=== PATIENT | female | born 1990 | race Caucasian/White ===

== ENCOUNTER 2018-01-29 03:20 | Emergency (ER) | payer MEDICAID ==
[~2018-01-29] VITALS: Ht 160 cm; Wt 73.0 kg
[~2018-01-29 03:20] MED LIST: FERR325T23 PO; IBUP-779 PO; MULT-1146 PO
[2018-01-29] MEDS ORDERED: ONDANSETRON HCL 4MG/2ML INJ IV STA (04:02)
[2018-01-29] MEDS ORDERED: SODIUM CHLORIDE 0.9% 1,000 ML IV ONE (04:02)
[2018-01-29 04:28] LABS: BASOPHILS % 0.6 % (0.0-2.0); EOSINOPHILS % 0.9 % (0.0-5.0); HEMATOCRIT. 41.6 % (36.0-48.0); HEMOGLOBIN. 14.1 g/dL (12.0-16.0); LYMPHOCYTES % 17.8 % (20.0-50.0); MEAN CORPUSCULAR HEMOGLOBIN 30.8 pg (28.0-32.0); MEAN CORPUSCULAR VOLUME 90.9 fL (81.0-99.0); MEAN PLATELET VOLUME 8.3 fl (7.4-10.4); MONOCYTES % 5.5 % (2.0-8.0); NEUTROPHILS % 75.2 % (40.0-76.0); PLATELET 385 x1000/uL (130-400); RED BLOOD CELL COUNT 4.57 mill/uL (4.2-5.4)
[2018-01-29 04:32] LABS: CHLORIDE 101 mEq/L (98-107)
[2018-01-29 04:36] LABS: ETHANOL BLOOD < 10 mg/dL
[2018-01-29 06:52] LABS: CLARITY URINE CLEAR (CLEAR); COLOR URINE YELLOW (YELLOW); KETONES URINE NEGATIVE (NEGATIVE); LEUKOCYTE ESTERASE URINE NEGATIVE (NEGATIVE); NITRITE URINE NEGATIVE (NEGATIVE); OCCULT BLOOD URINE NEGATIVE (NEGATIVE); PH URINE 5.5 (4.5-8.0); PROTEIN URINE NEGATIVE (NEGATIVE); SPECIFIC GRAVITY URINE 1.011 (1.005-1.030); UROBILINOGEN URINE 0.2 E.U./dL (0.2-1.0)
[2018-01-29 07:09] LABS: *AMPHETAMINES SCREEN URINE NEGATIVE (NEGATIVE); *BARBITURATES SCREEN URINE NEGATIVE (NEGATIVE); *BENZODIAZEPINES SCREEN URINE NEGATIVE (NEGATIVE); *COCAINE SCREEN URINE NEGATIVE (NEGATIVE); METHADONE URINE SCREEN NEGATIVE (NEGATIVE); OPIATES URINE SCREEN NEGATIVE (NEGATIVE)
[2018-01-29 07:11] LABS: CANNABINOID URINE SCREEN NEGATIVE (NEGATIVE); PHENCYCLIDINE URINE SCREEN NEGATIVE (NEGATIVE)
[2018-01-29 08:35] VITALS: BP 107/69
== END 2018-01-29 08:40 | disposition home or self-care (01) ==
LOC: ER 03:20
DX: F41.9 Anxiety disorder, unspecified (principal); R11.10 Vomiting, unspecified; R19.7 Diarrhea, unspecified; R53.1 Weakness; F17.200 Nicotine dependence, unspecified, uncomplicated; Z90.49 Acquired absence of other specified parts of digestive tract; Z79.899 Other long term (current) drug therapy
CPT/HCPCS: 36415; 71045; 80048; 80305; 81003; 81025; 85025; 96361; 96374; 99284; G0482; J2405; J7030

== ENCOUNTER 2018-08-07 02:33 | Emergency (ER) | payer MEDICAID ==
[~2018-08-07] VITALS: Ht 165.1 cm; Wt 73.0 kg
[2018-08-07] MEDS ORDERED: ONDANSETRON HCL 4MG/2ML INJ IV STA (02:54)
[2018-08-07] MEDS ORDERED: SODIUM CHLORIDE 0.9% 1,000 ML IV ONE (02:54)
[2018-08-07] MEDS ORDERED: MORPHINE SULFATE 4 MG/ML CPJ (NOT FOR IM USE) IV STA (02:54)
[2018-08-07] MEDS ORDERED: TETANUS, DIPHTHERIA, PERTUSSIS VAC/PF 0.5ML (>7YR OLD) IM ONE (03:00)
[2018-08-07] MEDS ORDERED: CEFAZOLIN 1000MG PREMIX 50 ML IV ONE (03:00)
[2018-08-07] MEDS ORDERED: BACITRACIN 15GM TUBE TOP ONE (03:15)
[2018-08-07] MEDS ORDERED: IOHEXOL-300 100 ML BOTTLE ONE (04:28)
[2018-08-07 04:50] LABS: CHLORIDE 113 mEq/L (98-107)
[2018-08-07 04:56] LABS: HCG SCREEN NEGATIVE
[2018-08-07 05:05] LABS: HEMATOCRIT. 36.9 % (36.0-48.0); HEMOGLOBIN. 12.2 g/dL (12.0-16.0); MEAN CORPUSCULAR HEMOGLOBIN 29.2 pg (28.0-32.0); MEAN CORPUSCULAR VOLUME 88.3 fL (81.0-99.0); MEAN PLATELET VOLUME 8.2 fl (7.4-10.4); PLATELET 390 x1000/uL (130-400); RED BLOOD CELL COUNT 4.18 mill/uL (4.2-5.4); RED CELL DISTRIBUTION WIDTH 13.6 % (11.6-14.6)
[2018-08-07 05:11] LABS: INR 0.9; PARTIAL THROMBOPLASTIN TIME 25.9 sec (23.4-31.0); PROTHROMBIN TIME 9.6 sec (9.6-11.0)
[2018-08-07 05:43] LABS: PLATELET ESTIMATE NORMAL
[2018-08-07 06:50] LABS: CLARITY URINE CLEAR (CLEAR); COLOR URINE YELLOW (YELLOW); KETONES URINE NEGATIVE (NEGATIVE); LEUKOCYTE ESTERASE URINE NEGATIVE (NEGATIVE); NITRITE URINE NEGATIVE (NEGATIVE); OCCULT BLOOD URINE TRACE (NEGATIVE); PROTEIN URINE TRACE (NEGATIVE); UROBILINOGEN URINE 0.2 E.U./dL (0.2-1.0)
[2018-08-07 06:56] VITALS: BP 119/61
== END 2018-08-07 07:02 | disposition short-term general hospital (02) ==
LOC: ER 03:01
DX: S27.0XXA Traumatic pneumothorax, initial encounter (principal); S22.42XA Multiple fractures of ribs, left side, initial encounter for closed fracture; S02.2XXA Fracture of nasal bones, initial encounter for closed fracture; S02.5XXA Fracture of tooth (traumatic), initial encounter for closed fracture; S00.83XA Contusion of other part of head, initial encounter; S00.11XA Contusion of right eyelid and periocular area, initial encounter; S80.212A Abrasion, left knee, initial encounter; S80.211A Abrasion, right knee, initial encounter; S50.811A Abrasion of right forearm, initial encounter; S59.812A Other specified injuries left forearm, initial encounter; S20.419A Abrasion of unspecified back wall of thorax, initial encounter; S20.111A Abrasion of breast, right breast, initial encounter; S30.811A Abrasion of abdominal wall, initial encounter; V03.10XA Pedestrian on foot injured in collision with car, pick-up truck or van in traffic accident, initial encounter; Y93.89 Activity, other specified; Y92.410 Unspecified street and highway as the place of occurrence of the external cause; F17.210 Nicotine dependence, cigarettes, uncomplicated
CPT/HCPCS: 36415; 70450; 70486; 71045; 71260; 72125; 72170; 73090; 74177; 80053; 81003; 83690; 84703; 85025; 85610; 85730; 86850; 86900; 86901; 90471; 90715; 96365; 96375; 99285; J0690; J2270; J2405; J7030; Q9967; Z7610

== ENCOUNTER 2019-11-23 05:25 | Emergency (ER) | payer MEDICAID ==
[~2019-11-23] VITALS: Ht 165.1 cm; Wt 73.0 kg
[2019-11-23 07:13] VITALS: BP 111/69
== END 2019-11-23 07:14 | disposition home or self-care (01) ==
LOC: ER 05:25
DX: F41.0 Panic disorder [episodic paroxysmal anxiety] (principal); Z63.79 Other stressful life events affecting family and household; F17.210 Nicotine dependence, cigarettes, uncomplicated
CPT/HCPCS: 81025; 93005; 99283

== ENCOUNTER 2020-11-20 15:50 | Emergency (ER) | payer MEDICAID ==
[~2020-11-20] VITALS: Ht 154.9 cm; Wt 85.0 kg
[2020-11-20 17:10] VITALS: BP 109/57
[2020-11-20] MEDS ORDERED: TOPUD MT (17:42)
[2020-11-20] MEDS ORDERED: LORA-68 MT (17:42)
== END 2020-11-20 18:28 | disposition home or self-care (01) ==
LOC: ER 15:50
DX: J06.9 Acute upper respiratory infection, unspecified (principal); Z20.822 Contact with and (suspected) exposure to COVID-19
CPT/HCPCS: 99283; C9803; U0003; U0005

== ENCOUNTER 2020-12-25 20:27 | Emergency (ER) | payer MEDICAID ==
[~2020-12-25] VITALS: Ht 167.6 cm; Wt 75.0 kg
[~2020-12-25 20:27] MED LIST changes: +LORA-68 MT; +TOPUD MT
[2020-12-25] MEDS ORDERED: MORPHINE SULFATE 4 MG/ML CPJ (NOT FOR IM USE) IV ONE (21:00)
[2020-12-25] MEDS ORDERED: SODIUM CHLORIDE 0.9% 1,000 ML IV ONE (21:00)
[2020-12-25 21:23] LABS: BASOPHILS % 0.3 % (0.0-2.0); EOSINOPHILS % 0.2 % (0.0-5.0); HEMATOCRIT. 31.8 % (36.0-48.0); HEMOGLOBIN. 10.9 g/dL (12.0-16.0); LYMPHOCYTES % 9.5 % (20.0-50.0); MEAN CORPUSCULAR HEMOGLOBIN 30.1 pg (28.0-32.0); MEAN CORPUSCULAR VOLUME 87.9 fL (81.0-99.0); MEAN PLATELET VOLUME 7.9 fl (7.4-10.4); MONOCYTES % 3.1 % (2.0-8.0); NEUTROPHILS % 86.9 % (40.0-76.0); PLATELET 350 x1000/uL (130-400); RED BLOOD CELL COUNT 3.62 mill/uL (4.2-5.4); RED CELL DISTRIBUTION WIDTH 13.2 % (11.6-14.6)
[2020-12-25 21:29] LABS: CHLORIDE 105 mEq/L (98-107)
[2020-12-25 21:53] LABS: B-HCG QUANTITATIVE 25378 mIU/mL (<3)
[2020-12-25] MEDS ORDERED: IBUP-2028 MT (23:08)
[2020-12-25] MEDS ORDERED: HYDR-4001 MT (23:08)
[2020-12-26 02:41] VITALS: BP 124/70
== END 2020-12-26 02:44 | disposition home or self-care (01) ==
LOC: ER 20:27
DX: O03.9 Complete or unspecified spontaneous abortion without complication (principal); I49.9 Cardiac arrhythmia, unspecified; Z3A.10 10 weeks gestation of pregnancy
CPT/HCPCS: 36415; 76801; 76817; 80053; 84702; 85025; 86850; 86900; 86901; 88309; 93005; 96360; 96361; 99285; J7030

== ENCOUNTER 2021-02-17 15:26 | Emergency (ER) | payer MEDICAID ==
[~2021-02-17] VITALS: Ht 160 cm; Wt 73.0 kg
[~2021-02-17 15:26] MED LIST changes: +HYDR-4001 MT; +IBUP-2028 MT
[2021-02-17 15:42] VITALS: BP 129/82
== END 2021-02-17 16:52 | disposition home or self-care (01) ==
LOC: ER 15:26
DX: F41.9 Anxiety disorder, unspecified (principal); Z90.49 Acquired absence of other specified parts of digestive tract; Z79.899 Other long term (current) drug therapy
CPT/HCPCS: 99283

== ENCOUNTER 2021-09-18 11:13 | Emergency (ER) | payer MEDICAID ==
[~2021-09-18] VITALS: Ht 154.9 cm; Wt 82.0 kg
[2021-09-18 11:17] VITALS: BP 145/91
[2021-09-18] MEDS ORDERED: ACETAMINOPHEN 500MG TABLET PO ONE (13:00)
== END 2021-09-18 13:41 | disposition home or self-care (01) ==
LOC: ER 11:13
DX: S00.83XA Contusion of other part of head, initial encounter (principal); W22.8XXA Striking against or struck by other objects, initial encounter; Y93.89 Activity, other specified; Y92.89 Other specified places as the place of occurrence of the external cause; Y99.8 Other external cause status; F41.9 Anxiety disorder, unspecified; Z90.49 Acquired absence of other specified parts of digestive tract; Z79.899 Other long term (current) drug therapy
CPT/HCPCS: 99282

== ENCOUNTER 2021-10-01 07:28 | Emergency (ER) | payer MEDICAID ==
[~2021-10-01] VITALS: Ht 154.9 cm; Wt 82.0 kg
[2021-10-01] MEDS ORDERED: HYDROCODONE/ACETAMINOPHEN 5/325MG TABLET PO ONE (08:00)
[2021-10-01] MEDS ORDERED: ONDANSETRON 4MG ODT PO ONE (08:00)
[2021-10-01 09:24] VITALS: BP 133/80
[2021-10-01] MEDS ORDERED: KETOROLAC 60MG/2ML VIAL IM ONE (09:30)
[2021-10-01] MEDS ORDERED: IBUP-2030 MT (09:55)
[2021-10-01] MEDS ORDERED: METH-773 MT (09:55)
== END 2021-10-01 10:12 | disposition home or self-care (01) ==
LOC: ER 07:28
DX: M54.50 Low back pain, unspecified (principal); M25.551 Pain in right hip; Z90.49 Acquired absence of other specified parts of digestive tract; W18.30XA Fall on same level, unspecified, initial encounter; Y93.9 Activity, unspecified; Y92.89 Other specified places as the place of occurrence of the external cause; Y99.8 Other external cause status
CPT/HCPCS: 72100; 73502; 96372; 99284; J1885; Q0162

== ENCOUNTER 2024-04-08 02:13 | Emergency (ER) | payer MEDICAID ==
[~2024-04-08] VITALS: Ht 154.9 cm; Wt 65.0 kg
[~2024-04-08 02:13] MED LIST changes: +IBUP-2030 MT; +METH-773 MT
[2024-04-08 02:24] VITALS: O2SAT 100
[2024-04-08] MEDS: LORAZEPAM 0.5MG TABLET PO ONE (04:00)
[2024-04-08 04:20] VITALS: BP 119/71; PULSE 62; RESP 16; TEMP 36.8; O2SAT 100
== END 2024-04-08 04:23 | disposition home or self-care (01) ==
LOC: ER 02:13
DX: F41.9 Anxiety disorder, unspecified (principal); Z90.49 Acquired absence of other specified parts of digestive tract; Z79.899 Other long term (current) drug therapy
CPT/HCPCS: 99283

== ENCOUNTER 2024-05-04 16:59 | Emergency (ER) | payer MEDICAID ==
[~2024-05-04] VITALS: Ht 160 cm; Wt 82.0 kg
[2024-05-04 17:01] VITALS: O2SAT 99
[2024-05-04 19:17] LABS: BASOPHILS % 0.7 % (0.0-2.0); EOSINOPHILS % 0.7 % (0.0-5.0); HEMATOCRIT. 40.3 % (36.0-48.0); HEMOGLOBIN. 13.3 g/dL (12.0-16.0); LYMPHOCYTES % 16.1 % (20.0-50.0); MEAN CORPUSCULAR HEMOGLOBIN 29.9 pg (28.0-32.0); MEAN CORPUSCULAR VOLUME 90.6 fL (81.0-99.0); MEAN PLATELET VOLUME 7.8 fl (7.4-10.4); NEUTROPHILS % 78.5 % (40.0-76.0); PLATELET 411 x1000/uL (130-400); RED BLOOD CELL COUNT 4.45 mill/uL (4.2-5.4); RED CELL DISTRIBUTION WIDTH 13.8 % (11.6-14.6); WHITE BLOOD COUNT 14.2 x1000/uL (4.5-11.0)
[2024-05-04 19:27] LABS: CHLORIDE 102 mEq/L (98-107); POTASSIUM 3.5 mEq/L (3.5-5.1); SODIUM 139 mEq/L (136-145)
[2024-05-04 19:28] LABS: CALCIUM 9.3 mg/dL (8.7-10.4); CARBON DIOXIDE 26 mEq/L (21-32)
[2024-05-04 19:29] LABS: HCG SCREEN NEGATIVE
[2024-05-04 19:33] LABS: CREATININE 0.6 mg/dL (0.6-1.0); GLUCOSE 90 mg/dL (70-105); UREA NITROGEN BLOOD 9 mg/dL (9-23)
[2024-05-04 19:34] LABS: CLARITY URINE CLOUDY (CLEAR); COLOR URINE YELLOW (YELLOW); GLUCOSE URINE NEGATIVE (NEGATIVE); KETONES URINE 1+ (NEGATIVE); LEUKOCYTE ESTERASE URINE NEGATIVE (NEGATIVE); NITRITE URINE NEGATIVE (NEGATIVE); OCCULT BLOOD URINE NEGATIVE (NEGATIVE); PROTEIN URINE 1+ (NEGATIVE); SPECIFIC GRAVITY URINE 1.025 (1.005-1.030)
[2024-05-04 19:35] LABS: TROPONIN I HIGH SENSITIVITY < 4 ng/L (3.0-34)
[2024-05-04 19:48] LABS: RBC URINE 0-2 /hpf (0-2); WBC URINE 0-2 /hpf (0-2)
[2024-05-04 19:49] LABS: BACTERIA URINE 1+; SQUAMOUS EPITHELIAL CELL URINE 3+ /lpf (RARE/1+)
[2024-05-04 21:21] LABS: TROPONIN I HIGH SENSITIVITY < 4 ng/L (3.0-34)
[2024-05-04 21:25] VITALS: BP 138/72; PULSE 70; RESP 20; TEMP 37.1; O2SAT 98
== END 2024-05-04 21:40 | disposition home or self-care (01) ==
LOC: ER 16:59
DX: R07.89 Other chest pain (principal); F41.9 Anxiety disorder, unspecified; Z87.891 Personal history of nicotine dependence
CPT/HCPCS: 36415; 71045; 80048; 81003; 81025; 84484; 84703; 85025; 93005; 99285

== ENCOUNTER 2025-01-29 00:07 | Emergency (ER) | payer MEDICAID ==
[~2025-01-29] VITALS: Ht 154.9 cm; Wt 80.1 kg
[2025-01-29 00:18] VITALS: TEMP 36.9; O2SAT 99
[2025-01-29 01:33] LABS: BASOPHILS % 0.4 % (0.0-2.0); EOSINOPHILS % 2.0 % (0.0-5.0); HEMATOCRIT. 40.3 % (36.0-48.0); HEMOGLOBIN. 13.2 g/dL (12.0-16.0); LYMPHOCYTES % 26.6 % (20.0-50.0); MEAN PLATELET VOLUME 8.0 fl (7.4-10.4); MONOCYTES % 5.4 % (2.0-8.0); NEUTROPHILS % 65.6 % (40.0-76.0); PLATELET 357 x1000/uL (130-400); RED BLOOD CELL COUNT 4.26 mill/uL (4.2-5.4); RED CELL DISTRIBUTION WIDTH 12.7 % (11.6-14.6)
[2025-01-29 01:52] LABS: CREATININE 0.6 mg/dL (0.6-1.0)
[2025-01-29 01:53] LABS: TROPONIN I HIGH SENSITIVITY < 4 ng/L (3.0-34); UREA NITROGEN BLOOD 6 mg/dL (9-23)
[2025-01-29 01:54] LABS: ASPARTATE AMINOTRANSFERASE 70 IU/L (<34)
[2025-01-29 01:55] LABS: BILIRUBIN DIRECT 0.2 mg/dL (<=3.0); BILIRUBIN TOTAL 0.5 mg/dL (0.1-1.0); PROTEIN TOTAL 7.2 g/dL (6.0-8.3)
[2025-01-29 01:58] LABS: HCG SCREEN NEGATIVE
[2025-01-29] MEDS: ACETAMINOPHEN 500MG TABLET PO ONE (02:11)
[2025-01-29] MEDS: FAMOTIDINE 20MG TABLET PO ONE (02:11)
[2025-01-29] MEDS: ONDANSETRON 4MG ODT PO ONE (02:11)
[2025-01-29 02:25] VITALS: BP 122/76; PULSE 76; RESP 18; O2SAT 98
[2025-01-29 03:15] LABS: CLARITY URINE CLEAR (CLEAR); COLOR URINE DARK YELLOW (YELLOW); GLUCOSE URINE NEGATIVE (NEGATIVE); KETONES URINE TRACE (NEGATIVE); LEUKOCYTE ESTERASE URINE NEGATIVE (NEGATIVE); NITRITE URINE NEGATIVE (NEGATIVE); OCCULT BLOOD URINE NEGATIVE (NEGATIVE); PH URINE 8.0 (4.5-8.0); PROTEIN URINE 1+ (NEGATIVE); SPECIFIC GRAVITY URINE 1.028 (1.005-1.030); UROBILINOGEN URINE 2.0 E.U./dL (0.2-1.0)
[2025-01-29 05:55] LABS: SQUAMOUS EPITHELIAL CELL URINE 2+ /lpf (RARE/1+)
[2025-01-29 05:56] LABS: BACTERIA URINE NONE SEEN; RBC URINE 0-2 /hpf (0-2); WBC URINE 0-2 /hpf (0-2)
== END 2025-01-29 02:29 | disposition home or self-care (01) ==
LOC: ER 00:07
DX: F41.9 Anxiety disorder, unspecified (principal); R06.02 Shortness of breath; Z79.899 Other long term (current) drug therapy
CPT/HCPCS: 36415; 71045; 80048; 80076; 81003; 81025; 83735; 83880; 84484; 84703; 85025; 93005; 99285; Q0162